=== PATIENT | female | born 1945 | race Caucasian/White ===

== ENCOUNTER 2024-10-16 03:31 | Emergency (ER) | payer MEDICARE, SELFPAY ==
[2024-10-16 03:36] VITALS: BP 164/73
[2024-10-16 04:01] VITALS: BP 123/64
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
[2024-10-16 05:00] VITALS: BP 131/95
== END 2024-10-16 05:33 | disposition home or self-care (01) ==
LOC: EMR 03:31
PROVIDERS: EMERGENCY PHYSICIAN Student in an Organized Health Care Education/Training Program
DX: T50.901A Poisoning by unspecified drugs, medicaments and biological substances, accidental (unintentional), initial encounter (principal); Y92.9 Unspecified place or not applicable
CPT/HCPCS: 99283; 93005